=== PATIENT | female | born 1945 | race Caucasian/White ===

== ENCOUNTER 2017-08-24 18:09 | Inpatient (IN) | payer MEDICARE, OTHER ==
[~2017-08-24] VITALS: Ht 165.1 cm; Wt 102.8 kg
[2017-08-24] MEDS ORDERED: ASPIRIN 81 MG TAB PO ONE (18:30)
[2017-08-24] MEDS ORDERED: FUROSEMIDE 40 MG INJ IV ONE (18:30)
[2017-08-24] MEDS ORDERED: NITROGLYCERIN (SL) 0.4 MG TAB SL ONE (18:30)
--- NOTE | 2017-08-24 18:38 | RADRPT ---
PROCEDURE: XR, Chest. CLINICAL INDICATION: Cough/abdomen pain. TECHNIQUE: AP chest COMPARISON: None available. FINDINGS: The heart is somewhat enlarged. There is no acute infiltrate in the lungs. No pleural effusion. IMPRESSION: 1. Borderline cardiomegaly. RPTAT: GG .Raul Sheffield MD, Date Time Electronically viewed and signed by .Raul Sheffield MD, on 08/24/2017 18:38 .Y/
[2017-08-24 18:39] LABS: BASOPHILS % 0.2 % (0.0-2.0); EOSINOPHILS # 0.2 10^3/ul (0.0-0.5); EOSINOPHILS % 1.5 % (0.0-7.0); HEMATOCRIT 42.9 % (37.0-47.0); HEMOGLOBIN 14.7 g/dl (12.0-16.0); LYMPHOCYTES % 13.7 % (15.0-51.0); MEAN CORPUSCULAR HEMOGLOBIN 30.4 pg (29.0-33.0); MEAN CORPUSCULAR HGB CONC 34.3 g/dl (32.0-37.0); MEAN CORPUSCULAR VOLUME 88.8 fl (82.0-101.0); MEAN PLATELET VOLUME 10.4 fl (7.4-10.4); MONOCYTE # 0.7 10^3/ul (0.3-0.9); MONOCYTES % 4.7 % (0.0-11.0); NEUTROPHIL # 11.7 10^3/ul (1.6-7.5); NEUTROPHILS % 79.1 % (39.0-77.0); PLATELET COUNT 297 10^3/UL (140-415); RED BLOOD COUNT 4.83 10^6/ul (4.20-5.40); RED CELL DISTRIBUTION WIDTH 13.2 % (11.5-14.5); WHITE BLOOD COUNT 14.8 10^3/ul (4.8-10.8)
[2017-08-24] MEDS ORDERED: ALBUTEROL 0.5% (NEB) 2.5 MG/0.5 ML AMP INH STA (18:56)
[2017-08-24] MEDS ORDERED: METHYLPREDNISOLONE 125 MG INJ IV STA (18:56)
[2017-08-24] MEDS ORDERED: IPRATROPIUM (NEB) 0.5 MG/2.5 ML AMP INH STA (18:56)
[2017-08-24 19:08] LABS: INR 1.02; PROTIME 13.5 Sec (11.9-14.9); PT RATIO 1.1
[2017-08-24 19:09] LABS: ALANINE AMINOTRANSFERASE 42 IU/L (13-69); ALBUMIN 4.5 g/dl (3.3-4.9); ALBUMIN/GLOBULIN RATIO 1.45; ALKALINE PHOSPHATASE 121 IU/L (42-121); ANION GAP 15 (8-16); ASPARTATE AMINO TRANSFERASE 31 IU/L (15-46); BILIRUBIN,INDIRECT 1.1 mg/dl (0-1.1); BILIRUBIN,TOTAL 1.1 mg/dl (0.2-1.3); BLOOD UREA NITROGEN 20 mg/dl (7-20); CALCIUM 9.7 mg/dl (8.4-10.2); CARBON DIOXIDE 30 mmol/L (21-31); CHLORIDE 99 mmol/L (97-110); CREATININE 0.63 mg/dl (0.44-1.00); GLUCOSE 222 mg/dl (70-220); POTASSIUM 4.4 mmol/L (3.5-5.1); SODIUM 140 mmol/L (135-144); TOTAL PROTEIN 7.6 g/dl (6.1-8.1)
[2017-08-24 19:22] LABS: TROPONIN-I < 0.012 ng/ml (0.00-0.12)
--- NOTE | 2017-08-24 19:23 | ERD ---
ER Documentation Chief Complaint Chief Complaint SOB HPI 72-year-old woman brought in by EMS for complaints of shortness of breath and dyspnea on exertion, symptoms began while walking. Patient does not have a history of heart failure or asthma, denies lower extremity swelling, no chest pain, no fevers or chills, no cough, no headache or blurry vision, no dizziness. Patient was transported here by EMS on CPAP because she was initially hypoxic at the scene. ROS All systems reviewed and are negative except as per history of present illness. Allergies Allergies: Coded Allergies: levofloxacin (Unverified Allergy, Severe, TONGUE SWELLING, 08/24/17) PMhx/Soc Obesity, hypertension, dyslipidemia FmHx Family History: No diabetes Physical Exam Vitals Vital Signs Date Time Temp Pulse Resp B/P Pulse Ox O2 Delivery O2 Flow Rate FiO2 08/24/17 19:30 98.6 83 22 126/81 93 BIPAP 08/24/17 19:05 89 24 93 21 08/24/17 18:51 98.6 83 27 113/74 100 BIPAP 08/24/17 18:29 88 100 100 08/24/17 18:18 98.6 92 27 179/81 100 Physical Exam GENERAL: Well-developed, well-nourished, dyspneic, afebrile HEENT: Moist mucous membranes, pink conjunctiva, no cervical spine tenderness or step-off deformities, no goiter, no jaundice or icterus, extraocular movements intact without pain. No submandibular induration, and no pharyngeal erythema NEURO: Alert and oriented 3, cranial nerves II through XII intact bilaterally, pupils equal round reactive to light, no focal deficits or facial asymmetry, sensation intact distally Strength 5/5 in upper and lower extremities bilaterally CARDIAC: Regular rate and rhythm, no murmurs rubs or gallops LUNGS: Poor breath sounds bilaterally ABDOMEN: Soft nontender, no guarding, no rigidity, no rebound, no psoas sign no obturator sign. Normoactive bowel sounds SKIN: Warm and dry to touch, no abrasions, contusions, or hematomas, no lacerations, no ecchymosis, no target lesions, and without ulcers EXTREMITIES: Stasis dermatitis changes to the lower extremities bilaterally, 1+ pitting edema, calves are bilaterally symmetrical, no Homans sign, no popliteal cord sign. Distal pulses equal and bilateral PSYCH: Normal affect without agitation or irritability Result Diagram: 12/11/17 1831 08/24/17 1831 Results 24 hrs Laboratory Tests Test 08/24/17 18:31 08/24/17 19:38 White Blood Count 14.810^3/ul Red Blood Count 4.8310^6/ul Hemoglobin 14.7g/dl Hematocrit 42.9% Mean Corpuscular Volume 88.8fl Mean Corpuscular Hemoglobin 30.4pg Mean Corpuscular Hemoglobin Concent 34.3g/dl Red Cell Distribution Width 13.2% Platelet Count 86764^3/UL Mean Platelet Volume 10.4fl Neutrophils % 79.1% Lymphocytes % 13.7% Monocytes % 4.7% Eosinophils % 1.5% Basophils % 0.2% Nucleated Red Blood Cells % 0.0/100WBC Neutrophils # 11.710^3/ul Lymphocytes # 2.010^3/ul Monocytes # 0.710^3/ul Eosinophils # 0.210^3/ul Basophils # 0.010^3/ul Nucleated Red Blood Cells # 0.010^3/ul Prothrombin Time 13.5Sec Prothrombin Time Ratio 1.1 INR International Normalized Ratio 1.02 Sodium Level 140mmol/L Potassium Level 4.4mmol/L Chloride Level 99mmol/L Carbon Dioxide Level 30mmol/L Anion Gap 15 Blood Urea Nitrogen 20mg/dl Creatinine 0.63mg/dl Glucose Level 222mg/dl Calcium Level 9.7mg/dl Total Bilirubin 1.1mg/dl Direct Bilirubin 0.00mg/dl Indirect Bilirubin 1.1mg/dl Aspartate Amino Transf (AST/SGOT) 31IU/L Alanine Aminotransferase (ALT/SGPT) 42IU/L Alkaline Phosphatase 121IU/L Troponin I < 0.012ng/ml B-Type Natriuretic Peptide 337PG/ML Total Protein 7.6g/dl Albumin 4.5g/dl Globulin 3.10g/dl Albumin/Globulin Ratio 1.45 Lipase 96U/L Blood Gas Specimen Source Blood arterial Arterial Blood Date Drawn 08/24/2017 7:49:46 PM Arterial Blood pH (Temp corrected) 7.451 Arterial Blood pCO2 (Temp correct) 36.1mmhg Arterial Blood pO2 (Temp corrected) 454.9mmHG Arterial Blood HCO3 24.6mmol/L Arterial Blood Base Excess 1.0mmol/L Arterial Blood Oxygen Saturation 99.7mmHG Maverick Test ACCEPTAB Arterial Blood Gas Puncture Site Right Radial Arterial Blood Carboxyhemoglobin 0.3% Arterial Blood Methemoglobin 0.2% Blood Gas A-a O2 Differential 222.0mmHg Oxyhemoglobin Percent 99.2% Total Hemoglobin 14.9g/dl Blood Gas Temperature 37.0C Blood Gas Respiration Rate 16.0 Blood Gas Actual Respiration Rate 25 Blood Gas Modality BIPAP - S/T FiO2 100.0% Blood Gas Pressure Support 10 Blood Gas IPAP/EPAP Ratio 15/5 Blood Gas Notified Whom MM Blood Gas Notified Time 08/24/2017 7:59:58 PM Current Medications Medications (Trade) Dose Ordered Sig/Hood Route PRN Reason Start Time Stop Time Status Last Admin Dose Admin Aspirin (Aspirin) 324 mg ONCE ONCE PO 08/24/17 18:30 08/24/17 18:34 DC 08/24/17 18:38 Furosemide (Lasix) 60 mg ONCE ONCE IV 08/24/17 18:30 08/24/17 18:34 DC 08/24/17 18:38 Nitroglycerin (Nitroglycerin (Sl Tab) 0.4 Mg) 1 tab ONCE ONCE SL 08/24/17 18:30 08/24/17 18:34 DC 08/24/17 18:38 Albuterol (Proventil 0.5% (Neb)) 10 mg ONCE STAT INH 08/24/17 18:56 08/24/17 18:57 DC 08/24/17 19:05 Ipratropium Glade (Atrovent 0.02% (Neb)) 1 mg ONCE STAT INH 08/24/17 18:56 08/24/17 18:57 DC 08/24/17 19:05 Methylprednisolone Sodium Succinate (Solu-Medrol) 125 mg ONCE STAT IV 08/24/17 18:56 08/24/17 18:57 DC 08/24/17 19:01 Procedures/[facility] IV line was established patient was placed on cardiac cath tech rhythm strip revealed a sinus rhythm at about 80 bpm with upright P and T waves. Patient was afebrile Patient was initially hypertensive and dyspneic, I suspected decompensated heart failure and treated her with enalapril 1.25 mg IV, furosemide 60 mg IV 1 , nitroglycerin 0.4 mg sublingual, and aspirin 324 mg p.o. for cardioprotective measures. Patient was placed on BiPAP therapy with some improvement in symptoms. One AP view of the chest performed, read by me reveals no acute infiltrates, normal mediastinum, sharp costophrenic and cardiac borders, no air under the diaphragm. Otherwise unremarkable chest x-ray. EKG performed, read by me: 81 bpm, normal sinus rhythm, normal axis, no acute ST segment changes, narrow QRS complex, with good R-wave progression in precordial leads. I discontinued BiPAP therapy and saturation remained at about 95%, patient was actively wheezing and dyspneic and I treated her here with albuterol 10 mg via nebulizer, ipratropium 1 mg via nebulizer, and methylprednisolone 125 mg IV 1. CBC revealed a leukocytosis of 15, and electrolytes were normal, liver function tests were normal, troponin was negative, BNP was low. Influenza AB swabs are pending I will follow-up. ABG was normal. Critical Care: Time: 48 minutes, this was time separate from other billable procedures. Treatments/Evaluations: Close monitoring and treatment of unstable vital signs, cardiorespiratory, and neurologic status, while maintaining tight balance of fluid, respiratory, and cardiac interventions. Patient ultimately placed back on BiPAP therapy and it seems that nebulized albuterol is helping her. Influenza AB swabs were negative. Patient's pulmonary symptoms have not stabilized while in the department despite improvement. Patient remains dyspneic and was found to have wheezing while in the emergency department, although initial impression was that of decompensated heart failure. Patient will be admitted to telemetry setting for continued medical management and for possible further imaging, if indicated. I do not suspect pulmonary embolism, cardiac ischemia, or aortic dissection at this time although these are all differentials which may require further investigation/imaging as her symptoms evolve. Departure Diagnosis: Primary Impression: Acute respiratory failure Respiratory failure complication: hypoxia and hypercapnia Qualified Code: J96.01 - Acute respiratory failure with hypoxia and hypercapnia Additional Impressions: Hypertensive emergency Reactive airway disease with acute exacerbation Asthma severity: moderate Asthma persistence: persistent Qualified Code: J45.41 - Moderate persistent reactive airway disease with acute exacerbation Condition: Serious JOAQUINA FRY MD Aug 24, 2017 19:23
[2017-08-24 20:00] LABS: Allen Test ACCEPTAB; Arterial COHb 0.3 % (0.0-3.0); Arterial Fraction of Oxyhgb 99.2 % (93.0-99.0); Arterial HCO3 24.6 mmol/L (22.0-26.0); Arterial MetHb 0.2 % (0.0-1.5); Arterial Total Hemglobin 14.9 g/dl (12.0-18.0); Blood Gas IEPAP 15/5; Blood Gas PS 10; MODE BIPAP - S/T
[2017-08-24] MEDS ORDERED: BISACODYL (EC) 5 MG TAB PO PRN (20:30)
[2017-08-24] MEDS ORDERED: DOCUSATE SODIUM 100 MG CAP PO PRN (20:30)
[2017-08-24] MEDS ORDERED: ACETAMINOPHEN 325 MG TAB PO PRN (20:30)
[2017-08-24] MEDS ORDERED: NACL 0.9% 3 ML SYG IV SCH (20:30)
[2017-08-24] MEDS ORDERED: ONDANSETRON 4 MG TAB PO PRN (20:30)
[2017-08-24] MEDS ORDERED: hydrALAzine 20 MG INJ IV PRN (20:30)
[2017-08-24] MEDS ORDERED: CRES10 PO (20:32)
[2017-08-24] MEDS ORDERED: ATEN-51 PO (20:32)
[2017-08-24] MEDS ORDERED: REPA2TAB8 PO (20:32)
[2017-08-24] MEDS ORDERED: SITA100T8 PO (20:33)
[2017-08-24] MEDS ORDERED: TRIA1CAP PO (20:34)
[2017-08-24 20:35] LABS: ADD UMIC YES; UR ASCORBIC ACID NEGATIVE (NEGATIVE); UR BACTERIA MANY /HPF (NONE SEEN); UR BILIRUBIN (Dip) NEGATIVE (NEGATIVE); UR BLOOD (Dip) 1+ mg/dL (NEGATIVE); UR CLARITY CLEAR (CLEAR); UR COLOR STRAW (YELLOW); UR GLUCOSE (Dip) NEGATIVE (NEGATIVE); UR KETONES (Dip) NEGATIVE (NEGATIVE); UR LEUKOCYTE ESTERASE (Dip) NEGATIVE Leu/ul (NEGATIVE); UR NITRITE (Dip) NEGATIVE (NEGATIVE); UR RBC 1 /HPF (0-5); UR SPECIFIC GRAVITY (Dip) 1.006 (1.003-1.030); UR TOTAL PROTEIN (Dip) NEGATIVE (NEGATIVE); UR UROBILINOGEN (Dip) NEGATIVE (NEGATIVE)
[2017-08-24 20:39] LABS: D-DIMER 2784.84 ng/ml (<460)
[2017-08-24] MEDS ORDERED: ASPI-664 PO (20:51)
[2017-08-24] MEDS ORDERED: CYAN1TAB17 PO (20:51)
[2017-08-24] MEDS ORDERED: ERGO500037 PO (20:52)
[2017-08-24] MEDS ORDERED: OMEP20CA16 PO (20:52)
[2017-08-24] MEDS ORDERED: MELO-210 PO (20:53)
[2017-08-24] MEDS ORDERED: TRAM-40 PO (20:53)
[2017-08-24] MEDS ORDERED: SENN-99 PO (20:55)
[2017-08-24] MEDS: ALBUTEROL/IPRATROPIUM (NEB) 3 ML AMP HHN SCH (21:00)
[2017-08-24] MEDS: ENOXAPARIN 40 MG/0.4 ML SYG SC SCH (21:22)
[2017-08-24] MEDS: METHYLPREDNISOLONE 40 MG INJ IV SCH (21:23)
[2017-08-24] MEDS ORDERED: morphine 4 MG/ML VIAL IV STA (21:34)
[2017-08-24] MEDS ORDERED: IOHEXOL 100 ML ONE (22:20)
[2017-08-24] MEDS ORDERED: SOD CHLORIDE 0.9% 100 ML ONE (22:20)
--- NOTE | 2017-08-24 22:54 | RADRPT ---
PROCEDURE: US Lower extremity Venous. CLINICAL INDICATION: Elevated D-dimer TECHNIQUE: Multiple sonographic images of the bilateral lower extremity deep venous system was obt ained utilizing grayscale, color-flow, compressive sonography and doppler imaging with augmentation. The images were reviewed on a PACS workstation. COMPARISON: None. FINDINGS: There is normal compressibility and flow within the bilateral common femoral, superficial femoral , posterior tibial, peroneal and popliteal veins. IMPRESSION: No sonographic evidence for deep venous thrombosis. RPTAT: HJAH .Odalys Muñoz MD, MD Date Time Electronically viewed and signed by .Odalys Muñoz MD, MD on 08/24/2017 22:54 .H/
[2017-08-25] VITALS (14 sets, daily range): BP systolic 117–148; BP diastolic 60–69; PULSE 88–109; RESP 18–22; TEMP 98.1; Ht 165.1 cm; Wt 102.8 kg
--- NOTE | 2017-08-25 01:00 | RADRPT ---
PROCEDURE: CT Chest with IV contrast. CLINICAL INDICATION: Hypoxia. TECHNIQUE: CT scan of the chest was performed on a multidetector scanner. The patient was scanned following the uncomplicated intravenous administration of 100 cc of Isovue 370 contrast. 3D, coron al and sagittal reformatted images were obtained from the axial source images. Images were reviewed on a high-resolution PACS workstation. The total exam CTDlvol = 62 mGy and DLP = 748 mGy-cm. One of the following 3 dose reduction techniques were used: Automated exposure control; adjustment of the m A and/or kV according to patient size; or use of iterative reconstruction technique. DICOM images a re available. COMPARISON: Chest x-ray 08/24/2017 FINDINGS: No filling defects are identified within the pulmonary arteries to suggest pulmonary artery thrombos is. Thoracic aorta is normal caliber without aneurysm or dissection. There is no mediastinal or hi lar lymphadenopathy or mass. Heart is normal size. No pericardial fluid or thickening. There is mild dependent atelectasis. No focal infiltrate. There is no pleural effusion. There is no pneumothorax. There are no fractures. There are degenerative changes of the thoracic spine. Imaging obtained through the upper abdomen demonstrates partially fatty replaced pancreas. Liver i s hypodense/fatty. IMPRESSION: 1. No evidence for pulmonary embolus. 2. No aortic aneurysm or dissection. 3. No evidence for CHF or infiltrate. 4. Minimal bibasilar atelectasis. 5. Fatty liver and pancreas. RPTAT: HMVK .Sreedhar Asencio MD, MD Date Time Electronically viewed and signed by .Sreedhar Asencio MD, MD on 08/25/2017 00:59 .K/
[2017-08-25] MEDS: ALBUTEROL/IPRATROPIUM (NEB) 3 ML AMP HHN SCH ×6 (01:04→20:42)
[2017-08-25] MEDS: METHYLPREDNISOLONE 40 MG INJ IV SCH (05:31)
--- NOTE | 2017-08-25 06:22 | HP ---
Date/Time of Note Date/Time of Note DATE: 08/25/17 TIME: 06:21 Assessment/Plan VTE Prophylaxis VTE Prophylaxis Intervention: LMWH Lines/Catheters IV [facility] Saline [facility] Urinary Cath still in place: No Assessment/Plan Chief Complaint/Hosp Course This is a 72 year female being admitted to the telemetry floor for: #1 dyspnea: PE versus reactive airway disease versus respiratory infection versus cardiac: D-dimer was elevated at approximately 2800 however CTA of the chest was negative for PE and no signs of CHF or infiltrates. Patient does have an elevated white blood cell count of 14, the patient is afebrile. This possibly could be a viral infection especially in the setting of patient's postnasal drip and suspected mucus that has been difficult to clear. At the current time I will start the patient on Flonase as well as Mucinex. Will monitor for any development of any fevers. Chest x-ray and CT scan do not show any signs of any infiltrates I will hold off on any antibiotics at this time. Will order an echocardiogram to assess her heart especially with a slightly elevated BNP. Consider pulmonary/cardiology consultation if indicated, trend cardiac enzymes. Will also provide her as needed DuoNeb's. She is currently off of BiPAP and will continue to monitor for any signs of worsening respiratory function. #2 elevated d-dimer: D-dimer was approximately 2800. CTA of the chest was negative for PE. Lower extremity Dopplers were negative for DVTs. Hemoglobin and platelet count within normal values. There are no signs of any bleeding. This could be elevated secondary to possible underlying viral illness as per # 1. Will continue to monitor this. Patient may benefit from a hematology consultation as well. I will order repeat d-dimer. #3 diabetes: We will check hemoglobin A1c, will hold patient's home medications , insulin sliding scale #4 hypertension: We will continue patient's home medications #5 hyperlipidemia: We will continue patient's medications #6 acid reflux: We will continue patient on ppi #7 DVT and GI prolapses:, Lovenox, home ppi Further treatment strategy will be implemented as per the clinical course Problems: HPI/ROS Admit Date/Time Admit Date/Time Aug 24, 2017 at 20:15 Hx of Present Illness Chief complaint: Shortness of breath This is a 72-year-old woman brought in by EMS for complaints of shortness of breath and dyspnea on exertion, symptoms began while walking. Patient does not have a history of heart failure or asthma, denies lower extremity swelling, no chest pain, no fevers, no headache or blurry vision, no dizziness. Does report that when she was taking a shower the other day she felt the chills and she also has felt that there is some mucus that is stuck in her chest. She does report that her grandson is sick at home. Denies any pleuritic pain. She does report she feels some nasal discharge going down the back of her throat. Patient was transported here by EMS on CPAP because she was initially hypoxic at the scene. In the ER patient was put on BiPAP which resulted in good response. It was removed however patient still short of breath and sure she was put back on it. She also reports that her primary care doctor sent her to have imaging study of her lower back she was having some low back pain and she has sciatica down her left leg. She does not recall the exact results. Allergies: Levaquin Medications: See ABRAM BOUCHER Const: As per HPI Eyes : No pain discharge or redness or change in visual acuity ENT: No pain, sore throat, congestion, congestion, dysphagia or discharge Respiratory: As per HPI Cardiovascular: No chest pain, palpitation, PND, or edema GI : no change in appetite, abdominal pain, nausea, vomiting, diarrhea, constipation, or change in the color his stool Genitourinary: No dysuria, hematuria, flank pain , discharge or CVA tenderness Musculoskeletal: Low back pain at the L4 area that is being followed as an outpatient Skin: No rash, bruising or hives Neuro: No headache, dizziness, syncope, seizure, focal weakness Endocrine: No polyuria, polydipsia, temperature intolerance Psych: No hallucination, depression, anxiety or suicidal ideation PMH/Family/Social Past Medical History Diabetes mellitus, hypertension, hyperlipidemia, reflux, 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 The pupils are equal, round and reactive. Extraocular motor are intact, postnasal drip Neck: Supple with full range of motion. No rigidity or meningismus Chest: Nontender Lungs: Clear to auscultation bilaterally no crackles rales or wheezing, no acute respiratory distress Heart: Normal S1-S2, Regular rhythm and rate. No overt murmurs appreciated Abdomen: Soft , nontender, nondistended , bowel sounds are present. No guarding no rebound tenderness , No masses or organomegaly. No costovertebral temporal angle mass Extremities: Trace edema bilaterally at the level of the feet Neurologic: Normal mental status, speech normal, cranial nerves II through XII are intact, motor and sensory are intact, no focal weakness Additional Comments PROCEDURE: US Lower extremity Venous. CLINICAL INDICATION: Elevated D-dimer TECHNIQUE: Multiple sonographic images of the bilateral lower extremity deep venous system was obtained utilizing grayscale, color-flow, compressive sonography and doppler imaging with augmentation. The images were reviewed on a PACS workstation. COMPARISON: None. FINDINGS: There is normal compressibility and flow within the bilateral common femoral, superficial femoral , posterior tibial, peroneal and popliteal veins. IMPRESSION: No sonographic evidence for deep venous thrombosis. RPTAT: HJAH .Odalys Muñoz MD, Date Time Electronically viewed and signed by .Odalys Muñoz MD, on 08/24/2017 22:54 .H/ CC: CAITLIN THURMAN PROCEDURE: XR, Chest. CLINICAL INDICATION: Cough/abdomen pain. TECHNIQUE: AP chest COMPARISON: None available. FINDINGS: The heart is somewhat enlarged. There is no acute infiltrate in the lungs. No pleural effusion. IMPRESSION: 1. Borderline cardiomegaly. RPTAT: GG .Raul Sheffield MD, MD Date Time Electronically viewed and signed by .Raul Sheffield MD, MD on 08/24/2017 18:38 .Y/ CC: JOAQUINA FRY MD PROCEDURE: CT Chest with IV contrast. CLINICAL INDICATION: Hypoxia. TECHNIQUE: CT scan of the chest was performed on a multidetector scanner. The patient was scanned following the uncomplicated intravenous administration of 100 cc of Isovue 370 contrast. 3D, coronal and sagittal reformatted images were obtained from the axial source images. Images were reviewed on a high- resolution PACS workstation. The total exam CTDlvol = 62 mGy and DLP = 748 mGy- cm. One of the following 3 dose reduction techniques were used: Automated exposure control; adjustment of the mA and/or kV according to patient size; or use of iterative reconstruction technique. DICOM images are available. COMPARISON: Chest x-ray 08/24/2017 FINDINGS: No filling defects are identified within the pulmonary arteries to suggest pulmonary artery thrombosis. Thoracic aorta is normal caliber without aneurysm or dissection. There is no mediastinal or hilar lymphadenopathy or mass. Heart is normal size. No pericardial fluid or thickening. There is mild dependent atelectasis. No focal infiltrate. There is no pleural effusion. There is no pneumothorax. There are no fractures. There are degenerative changes of the thoracic spine. Imaging obtained through the upper abdomen demonstrates partially fatty replaced pancreas. Liver is hypodense/fatty. IMPRESSION: 1. No evidence for pulmonary embolus. 2. No aortic aneurysm or dissection. 3. No evidence for CHF or infiltrate. 4. Minimal bibasilar atelectasis. 5. Fatty liver and pancreas. RPTAT: HMVK .Sreedhar Asencio MD, MD Date Time Electronically viewed and signed by .Sreedhar Asencio MD, on 08/25/2017 00:59 .K/ CC: CAITLIN THURMAN EKG : 81 bpm, normal sinus rhythm, normal axis, no acute ST segment changes, narrow QRS complex, with good R-wave progression in precordial leads. Above as per ED physician documentation Labs Result Diagram: 08/24/17 18308/24/17 183 Medications Medications Current Medications Hydralazine HCl (Apresoline) 10 mg Q4H PRN IV ELEVATED BLOOD PRESSURE; Start 08/24/17 at 20:30 Ondansetron HCl (Zofran Tab) 4 mg Q6H PRN PO NAUSEA AND/OR VOMITING; Start 07/31 at 20:30 Methylprednisolone Sodium Succinate (Solu-Medrol) 30 mg Q8 IV Last administered on 08/25/17 05:31; Admin Dose 30 MG; Start 08/24/17 at 22:00 Acetaminophen (Tylenol Tab) 650 mg Q6H PRN PO PAIN LEVEL 1-3 OR FEVER; Start 08/24/17 at 20:30 Docusate Sodium (Colace) 100 mg Q12H PRN PO CONSTIPATION; Start 08/24/17 at 20 :30 Bisacodyl (Dulcolax) 5 mg DAILY PRN PO CONSTIPATION; Start 08/24/17 at 20:30 Enoxaparin Sodium (Lovenox) 40 mg DAILY SC Last administered on 08/24/17 21: 22; Admin Dose 40 MG; Start 08/24/17 at 20:30 Fluticasone Propionate (Flonase 0.05% Nasal) 1 spray DAILY NASAL ; Start at 09:00 CAITLIN THURMAN Aug 25, 2017 06:22
[2017-08-25] MEDS ORDERED: traMADol 50 MG TAB PO PRN (07:00)
[2017-08-25 09:10] LABS: BASOPHIL # 0.1 10^3/ul (0.0-0.1); BASOPHILS % 0.3 % (0.0-2.0); EOSINOPHILS # 0.1 10^3/ul (0.0-0.5); EOSINOPHILS % 0.3 % (0.0-7.0); HEMATOCRIT 39.8 % (37.0-47.0); HEMOGLOBIN 13.6 g/dl (12.0-16.0); LYMPHOCYTES # 0.7 10^3/ul (0.8-2.9); LYMPHOCYTES % 4.2 % (15.0-51.0); MEAN CORPUSCULAR HEMOGLOBIN 30.4 pg (29.0-33.0); MEAN CORPUSCULAR HGB CONC 34.2 g/dl (32.0-37.0); MEAN PLATELET VOLUME 10.4 fl (7.4-10.4); MONOCYTE # 0.1 10^3/ul (0.3-0.9); MONOCYTES % 0.7 % (0.0-11.0); NEUTROPHIL # 15.1 10^3/ul (1.6-7.5); NEUTROPHILS % 93.3 % (39.0-77.0); PLATELET COUNT 278 10^3/UL (140-415); RED BLOOD COUNT 4.47 10^6/ul (4.20-5.40); RED CELL DISTRIBUTION WIDTH 12.9 % (11.5-14.5); WHITE BLOOD COUNT 16.1 10^3/ul (4.8-10.8)
[2017-08-25] MEDS: ASPIRIN (EC) 81 MG TAB PO SCH (09:25)
[2017-08-25] MEDS: predniSONE 20 MG TAB PO SCH (09:25)
[2017-08-25] MEDS: FLUTICASONE 0.05% 16 GM NAS SPRAY NASAL SCH (09:25)
[2017-08-25] MEDS: ENOXAPARIN 40 MG/0.4 ML SYG SC SCH (09:29)
[2017-08-25 09:31] LABS: ALBUMIN 4.3 g/dl (3.3-4.9); ALBUMIN/GLOBULIN RATIO 1.34; BILIRUBIN,INDIRECT 1.1 mg/dl (0-1.1); BILIRUBIN,TOTAL 1.1 mg/dl (0.2-1.3); CALCIUM 10.2 mg/dl (8.4-10.2); CHOL/HDL RATIO 2.9 RATIO; CREATININE 0.77 mg/dl (0.44-1.00); TOTAL PROTEIN 7.5 g/dl (6.1-8.1)
[2017-08-25 09:44] LABS: D-DIMER 2387.01 ng/ml (<460)
[2017-08-25 09:57] LABS: THYROID STIMULATING HORMONE 1.25 MIU/L (0.465-4.680)
[2017-08-25] MEDS ORDERED: GLUCAGON 1 MG INJ IM PRN (10:00)
[2017-08-25] MEDS ORDERED: DEXTROSE 50% 50 ML SYRINGE IV PRN ×2 (10:00)
[2017-08-25] MEDS ORDERED: GLUCOSE GEL 15 GRAM TUBE BUCCAL PRN (10:00)
[2017-08-25] MEDS ORDERED: GLUCOSE GEL 15 GRAM TUBE PO PRN ×2 (10:00)
[2017-08-25] MEDS: TRIAMTERENE/HCTZ (37.5-25) CAP PO SCH (10:13)
[2017-08-25] MEDS: MELOXICAM 15 MG TAB PO SCH (10:13)
[2017-08-25] MEDS: GUAIFENESIN LA 600 MG TABSR PO SCH ×2 (10:13→20:31)
[2017-08-25] MEDS ORDERED: NYSTATIN 30 GM POWDER BTL TOP ONE (12:00)
[2017-08-25] MEDS: INSULIN ASPART [NOVOLOG] 3 ML PEN SC SCH ×4 (13:28→20:34)
--- NOTE | 2017-08-25 13:38 | PN ---
Date/Time of Note Date/Time of Note DATE: 08/25/17 TIME: 13:26 Assessment/Plan VTE Prophylaxis VTE Prophylaxis Intervention: SCD's Lines/Catheters IV Catheter Type (from Nrs): Saline Lock Urinary Cath still in place: No Assessment/Plan Assessment/Plan 72 yo F with no known chronic medical conditions here with 4 days of chest congestion, chills, shortness of breath. Suspect viral process. CT chest without PE or infiltrate. BNP not markedly elevated, though will check TTE to eval for DD PLAN TTE, lasix pending TTE result empiric steroid burst full RVP hyperglycemia from steroids-->SSI. a1c 7.6. consider metformin at discharge DVT prophx wean O2 downgrade to medsurg Subjective 24 Hr Interval Summary Free Text/Dictation Pt denies any tob hx, any hx of asthma. Per discussion with patient and son, pt had been experiencing chest congestion for the past 4 days. No fevers, +chills. also with PND Tele with just SR Exam/Review of Systems Vital Signs Vitals Vital Signs Date Time Temp Pulse Resp B/P Pulse Ox O2 Delivery O2 Flow Rate FiO2 08/25/17 12:15 102 08/25/17 12:07 97.6 20 131/60 92 08/25/17 09:47 3.0 08/25/17 09:47 Nasal Cannula 08/24/17 21:20 50 Exam nad minimal OP erythema no mrg no crackles or wheezing no edema no rashes CT chest results noted, BNP noted, flu swab noted Results Result Diagram: 08/25/17 0740 08/25/17 0740 Results 24 hrs Laboratory Tests Test 08/24/17 18:31 08/24/17 19:38 08/24/17 20:00 08/24/17 20:14 White Blood Count 14.8 H Red Blood Count 4.83 Hemoglobin 14.7 Hematocrit 42.9 Mean Corpuscular Volume 88.8 Mean Corpuscular Hemoglobin 30.4 Mean Corpuscular Hemoglobin Concent 34.3 Red Cell Distribution Width 13.2 Platelet Count 297 Mean Platelet Volume 10.4 Neutrophils % 79.1 H Lymphocytes % 13.7 L Monocytes % 4.7 Eosinophils % 1.5 Basophils % 0.2 Nucleated Red Blood Cells % 0.0 Neutrophils # 11.7 H Lymphocytes # 2.0 Monocytes # 0.7 Eosinophils # 0.2 Basophils # 0.0 Nucleated Red Blood Cells # 0.0 Prothrombin Time 13.5 Prothrombin Time Ratio 1.1 INR International Normalized Ratio 1.02 Sodium Level 140 Potassium Level 4.4 Chloride Level 99 Carbon Dioxide Level 30 Anion Gap 15 Blood Urea Nitrogen 20 Creatinine 0.63 Glucose Level 222 H Calcium Level 9.7 Total Bilirubin 1.1 Direct Bilirubin 0.00 Indirect Bilirubin 1.1 Aspartate Amino Transf (AST/SGOT) 31 Alanine Aminotransferase (ALT/SGPT) 42 Alkaline Phosphatase 121 Troponin I < 0.012 B-Type Natriuretic Peptide 337 H Total Protein 7.6 Albumin 4.5 Globulin 3.10 Albumin/Globulin Ratio 1.45 Lipase 96 Blood Gas Specimen Source Blood arterial Arterial Blood Date Drawn 08/24/2017 7:49:46 PM Arterial Blood pH (Temp corrected) 7.451 H Arterial Blood pCO2 (Temp correct) 36.1 Arterial Blood pO2 (Temp corrected) 454.9 H Arterial Blood HCO3 24.6 Arterial Blood Base Excess 1.0 Arterial Blood Oxygen Saturation 99.7 Maverick Test ACCEPTAB Arterial Blood Gas Puncture Site Right Radial Arterial Blood Carboxyhemoglobin 0.3 Arterial Blood Methemoglobin 0.2 Blood Gas A-a O2 Differential 222.0 H Oxyhemoglobin Percent 99.2 H Total Hemoglobin 14.9 Blood Gas Temperature 37.0 Blood Gas Respiration Rate 16.0 Blood Gas Actual Respiration Rate 25 Blood Gas Modality BIPAP - S/T FiO2 100.0 Blood Gas Pressure Support 10 Blood Gas IPAP/EPAP Ratio 15/5 Blood Gas Notified Whom MM Blood Gas Notified Time 08/24/2017 7:59:58 PM Urine Color STRAW Urine Clarity CLEAR Urine pH 5.0 Urine Specific [place] 1.006 Urine Ketones NEGATIVE Urine Nitrite NEGATIVE Urine Bilirubin NEGATIVE Urine Urobilinogen NEGATIVE Urine Leukocyte Esterase NEGATIVE Urine Microscopic RBC 1 Urine Microscopic WBC 4 Urine Bacteria MANY A Urine Hemoglobin 1+ H Urine Glucose NEGATIVE Urine Total Protein NEGATIVE D-Dimer 2784.84 H D-Dimer Comment Test 08/25/17 07:40 White Blood Count 16.1 H Red Blood Count 4.47 Hemoglobin 13.6 Hematocrit 39.8 Mean Corpuscular Volume 89.0 Mean Corpuscular Hemoglobin 30.4 Mean Corpuscular Hemoglobin Concent 34.2 Red Cell Distribution Width 12.9 Platelet Count 278 Mean Platelet Volume 10.4 Neutrophils % 93.3 H Lymphocytes % 4.2 L Monocytes % 0.7 Eosinophils % 0.3 Basophils % 0.3 Nucleated Red Blood Cells % 0.0 Neutrophils # 15.1 H Lymphocytes # 0.7 L Monocytes # 0.1 L Eosinophils # 0.1 Basophils # 0.1 Nucleated Red Blood Cells # 0.0 D-Dimer 2387.01 H D-Dimer Comment Sodium Level 140 Potassium Level 4.0 Chloride Level 95 L Carbon Dioxide Level 28 Anion Gap 21 H Blood Urea Nitrogen 21 H Creatinine 0.77 Glucose Level 448 #*H Hemoglobin A1c 7.6 H Calcium Level 10.2 Total Bilirubin 1.1 Direct Bilirubin 0.00 Indirect Bilirubin 1.1 Aspartate Amino Transf (AST/SGOT) 28 Alanine Aminotransferase (ALT/SGPT) 33 Alkaline Phosphatase 115 Total Protein 7.5 Albumin 4.3 Globulin 3.20 Albumin/Globulin Ratio 1.34 Triglycerides Level 71 Cholesterol Level 159 LDL Cholesterol, Calculated 91 HDL Cholesterol 54 Cholesterol/HDL Ratio 2.9 Thyroid Stimulating Hormone (TSH) 1.250 Medications Medications Current Medications Hydralazine HCl (Apresoline) 10 mg Q4H PRN IV ELEVATED BLOOD PRESSURE; Start 08/24/17 at 20:30 Ondansetron HCl (Zofran Tab) 4 mg Q6H PRN PO NAUSEA AND/OR VOMITING; Start 07/31 at 20:30 Acetaminophen (Tylenol Tab) 650 mg Q6H PRN PO PAIN LEVEL 1-3 OR FEVER; Start 08/24/17 at 20:30 Docusate Sodium (Colace) 100 mg Q12H PRN PO CONSTIPATION; Start 08/24/17 at 20 :30 Bisacodyl (Dulcolax) 5 mg DAILY PRN PO CONSTIPATION; Start 08/24/17 at 20:30 Enoxaparin Sodium (Lovenox) 40 mg DAILY SC Last administered on 08/25/17 09: 29; Admin Dose 40 MG; Start 08/24/17 at 20:30 Fluticasone Propionate (Flonase 0.05% Nasal) 1 spray DAILY NASAL Last administered on 08/25/17 09:25; Admin Dose 1 SPRAY; Start 08/25/17 at 09:00 Guaifenesin (Mucinex) 600 mg BID PO Last administered on 08/25/17 10:13; Admin Dose 600 MG; Start 08/25/17 at 09:00 Aspirin (Halfprin) 81 mg DAILY PO Last administered on 08/25/17 09:25; Admin Dose 81 MG; Start 08/25/17 at 09:00 Meloxicam (Mobic) 15 mg DAILY PO Last administered on 08/25/17 10:13; Admin Dose 15 MG; Start 08/25/17 at 09:00 Tramadol HCl (Ultram) 50 mg TID PRN PO PAIN; Start 08/25/17 at 07:00 Pantoprazole (Protonix Tab) 40 mg DAILY@06 PO ; Start 08/26/17 at 06:00 Atorvastatin Calcium (Lipitor) 40 mg DAILY@21 PO ; Start 08/25/17 at 21:00 Triamterene/HCTZ (Dyazide) 1 cap DAILY PO Last administered on 08/25/17 10:13 ; Admin Dose 1 CAP; Start 08/25/17 at 09:00 Prednisone (Prednisone) 40 mg DAILY PO Last administered on 08/25/17 09:25; Admin Dose 40 MG; Start 08/25/17 at 09:00 Diagnostic Test (Pha) (Accu-Chek) 1 ea 02 XX ; Start 08/26/17 at 02:00 Miscellaneous Information 1 ea NOTE XX ; Start 08/25/17 at 10:00 Glucose (Glutose) 15 gm Q15M PRN PO DECREASED GLUCOSE; Start 08/25/17 at 10:00 Glucose (Glutose) 22.5 gm Q15M PRN PO DECREASED GLUCOSE; Start 08/25/17 at 10: 00 Dextrose (D50w Syringe) 25 ml Q15M PRN IV DECREASED GLUCOSE; Start 08/25/17 at 10:00 Dextrose (D50w Syringe) 50 ml Q15M PRN IV DECREASED GLUCOSE; Start 08/25/17 at 10:00 Glucagon (Glucagen) 1 mg Q15M PRN IM DECREASED GLUCOSE; Start 08/25/17 at 10: 00 Glucose (Glutose) 15 gm Q15M PRN BUCCAL DECREASED GLUCOSE; Start 08/25/17 at 10:00 SANAM DELAROSA MD Aug 25, 2017 13:37
--- NOTE | 2017-08-25 14:27 | RADRPT ---
Echocardiogram Report Patient Name: KELLY MORAN Gender: Female Date: 1945 Study Date: 25-Aug-2017 Human Resource Assistant: Lisa Montoya [facility] Location: [id number] Ref. Physician: CAITLIN THURMAN Quality: Good Procedures: Transthoracic echocardiogram with complete 2D, M-Mode, and doppler examination. Indications: Acute respiratory failure. 2D/M Mode Doppler Measurement Value Normal Ranges Measurement Value Normal Ranges LVIDd 2D 4.3 3.5 - 5.6 cm AV Peak Abhinav 2.4 m/sec LVIDs 2D 2.5 2.1 - 4.1 cm AV Peak PG 23.5 mmHg LVPWd 2D 1.1 0.6 - 1.1 cm MV E Peak Abhinav 0.6 m/sec IVSd 2D 1.1 0.6 - 1.1 cm MV A Peak Abhinav 1.1 m/sec AoR Diam 2D 2.7 2.0 - 3.7 cm MV E/A 0.6 EDV 2D 85.0 cm3 MV Decel Time 178 msec ESV 2D 15.6 cm3 MV Decel Walsh 3 LA Dimen 2D 3.7 2.3 - 4.0 cm MV E/A 0.6 TR Peak Abhinav 2.9 m/sec TR Peak PG 34.3 mmHg RVSP 44.0 mmHg Findings Left Ventricle: Normal left ventricular systolic function. Normal left ventricular cavity size. Mild concentric left ventricular hypertrophy. Ejection fraction is visually estimated at 65 %. Tissue Doppler/Mitral Doppler indices are consistent with impaired relaxation (Stage I diastolic dysfunction). Right Ventricle: Normal right ventricular size. Normal right ventricular systolic function. Left Atrium: The left atrium is normal in size. Right Atrium: The right atrium is normal in size. Mitral Valve: Normal appearance and function of the mitral valve with trace physiologic regurgitation. Aortic Valve: No significant aortic stenosis or insufficiency. Aortic sclerosis without significant stenosis. Tricuspid Valve: Normal appearance of the tricuspid valve. Estimated peak PA systolic pressure 44 mmHg. There is mild tricuspid regurgitation. Pulmonic Valve: Normal pulmonic valve appearance. Pericardium: Normal pericardium with no significant pericardial effusion. Aorta: Normal aortic root. IVC: Normal size and normal respiratory collapse consistent with normal right atrial pressure. Conclusions 1.Normal left ventricular systolic function. Normal left ventricular cavity size. Mild concentric left ventricular hypertrophy. Ejection fraction is visually estimated at 65 %. Tissue Doppler/Mitral Doppler indices are consistent with impaired relaxation (Stage I diastolic dysfunction). 2.Normal appearance and function of the mitral valve with trace physiologic regurgitation. 3.No significant aortic stenosis or insufficiency. Aortic sclerosis without significant stenosis. 4.Normal appearance of the tricuspid valve. Estimated peak PA systolic pressure 44 mmHg. There is mild tricuspid regurgitation. Electronically Signed By: Fabian Jimenez 25-Aug-2017 14:26:55 -0800 Patient Name: KELLY MORAN Study Date: 25-Aug-[id number]
[2017-08-25] MEDS ORDERED: INSULIN GLARGINE [LANtus] 3 ML PEN SC SCH (20:00)
[2017-08-25] MEDS ORDERED: ATORVASTATIN 40 MG TAB PO SCH (21:00)
[2017-08-26] VITALS (10 sets, daily range): BP systolic 121–128; BP diastolic 56–67; PULSE 94–105; RESP 19–20
[2017-08-26] MEDS: ALBUTEROL/IPRATROPIUM (NEB) 3 ML AMP HHN SCH ×4 (00:29→13:55)
[2017-08-26] MEDS ORDERED: ACCU-CHEK XX SCH ×2 (02:00)
[2017-08-26] MEDS ORDERED: AL HYDROX/MG HYDROX/SIMETH 30 ML CUP PO PRN (04:00)
[2017-08-26] MEDS ORDERED: PANTOPRAZOLE (EC) 40 MG TAB PO SCH (06:00)
[2017-08-26] MEDS: INSULIN ASPART [NOVOLOG] 3 ML PEN SC SCH ×2 (08:34→12:41)
[2017-08-26] MEDS: FLUTICASONE 0.05% 16 GM NAS SPRAY NASAL SCH (09:05)
[2017-08-26] MEDS: TRIAMTERENE/HCTZ (37.5-25) CAP PO SCH (09:06)
[2017-08-26] MEDS: MELOXICAM 15 MG TAB PO SCH (09:06)
[2017-08-26] MEDS: predniSONE 20 MG TAB PO SCH (09:06)
[2017-08-26] MEDS: GUAIFENESIN LA 600 MG TABSR PO SCH (09:06)
[2017-08-26] MEDS: ASPIRIN (EC) 81 MG TAB PO SCH (09:06)
[2017-08-26] MEDS: ENOXAPARIN 40 MG/0.4 ML SYG SC SCH (09:08)
[2017-08-26] MEDS ORDERED: LANT3I SC (13:41)
[2017-08-26] MEDS ORDERED: GUAI600T14 PO (13:41)
[2017-08-26] MEDS ORDERED: PRED20TA PO (13:41)
--- NOTE | 2017-08-26 13:44 | DS ---
Date/Time of Note Date/Time of Note DATE: 08/26/17 TIME: 13:42 Discharge Summary Admission/Discharge Info Admit Date/Time Aug 24, 2017 at 20:15 Discharge Date/Time Discharge Diagnosis shortness of breath 2/2 bronchitis, most likely viral in origin, chronic diastolic HF Patient Condition: Good Procedures 12.12 CTA chest IMPRESSION: 1. No evidence for pulmonary embolus. 2. No aortic aneurysm or dissection. 3. No evidence for CHF or infiltrate. 4. Minimal bibasilar atelectasis. 5. Fatty liver and pancreas. 12. LE venous dopplers: no DVT 12. flu swab negative TTE 08/24 Conclusions 1. Normal left ventricular systolic function. Normal left ventricular cavity size. Mild concentric left ventricular hypertrophy. Ejection fraction is visually estimated at 65 %. Tissue Doppler/Mitral Doppler indices are consistent with impaired relaxation (Stage I diastolic dysfunction). 2. Normal appearance and function of the mitral valve with trace physiologic regurgitation. 3. No significant aortic stenosis or insufficiency. Aortic sclerosis without significant stenosis. 4. Normal appearance of the tricuspid valve. Estimated peak PA systolic pressure 44 mmHg. There is mild tricuspid regurgitation. Hx of Present Illness This is a 72-year-old woman brought in by EMS for complaints of shortness of breath and dyspnea on exertion, symptoms began while walking. Patient does not have a history of heart failure or asthma, denies lower extremity swelling, no chest pain, no fevers, no headache or blurry vision, no dizziness. Does report that when she was taking a shower the other day she felt the chills and she also has felt that there is some mucus that is stuck in her chest. She does report that her grandson is sick at home. Denies any pleuritic pain. She does report she feels some nasal discharge going down the back of her throat. Patient was transported here by EMS on CPAP because she was initially hypoxic at the scene. In the ER patient was put on BiPAP which resulted in good response. It was removed however patient still short of breath and sure she was put back on it. She also reports that her primary care doctor sent her to have imaging study of her lower back she was having some low back pain and she has sciatica down her left leg. She does not recall the exact results. Hospital Course 72 yo F with no known chronic medical conditions presented with 4 days of chest congestion, chills, shortness of breath. Suspect viral process. Steroid burst initiated. DDimer elevated but bl LE dopplers without DVT, CT chest without PE or infiltrate. BNP not markedly elevated, TTE showed just grade 1 DD. Pt had been weaned off supplemental O2 by HD2. Breathing back to baseline at discharge. Of note, pt with hyperglycemia from steroids. A1c only in 7s. Pt advised to take weight based basal inuslin while on steroids only and follow up with PCP within 5 days. DC summary given to patient and faxed to PCP's office. Changes from admit meds steroid burst mucinex for cough/chest congestion basal insulin while on steroids pending tests: respiratory viral swab pending at discharge. flu swab was negative Home Meds Reported Medications Sennosides (Dilma-Noel) 8.6 Mg Tablet, 8.6 MG PO DAILY Y for PRN, TAB 08/24/17 Tramadol Hcl* (Ultram*) 50 Mg Tablet, 50 MG PO TID Y for PAIN, TAB 08/24/17 Meloxicam* (Mobic*) 15 Mg Tablet, 15 MG PO DAILY, #30 TAB 08/24/17 Omeprazole* (Omeprazole*) 20 Mg Capsule.dr, 20 MG PO DAILY, #30 CAP 08/24/17 Ergocalciferol (Vitamin D2) (VITAMIN D2) 50,000 Unit Capsule, 01691 UNIT PO Q7D , CAP 08/24/17 Aspirin* (Aspirin* EC) 81 Mg Tablet.dr, 81 MG PO DAILY, TAB 08/24/17 Cyanocobalamin/FA/Pyridoxine (Folplex 2.2 Tablet) 1 Each Tablet, 1 EACH PO DAILY , TAB 08/24/17 Triamterene/Hydrochlorothiazid (Dyazide 37.5-25 Capsule) 1 Each Capsule, 1 EACH PO DAILY, CAP 08/24/17 Sitagliptin* (Januvia*) 100 Mg Tablet, 100 MG PO QAM, #30 TAB 08/24/17 Rosuvastatin Calcium* (Crestor*) 10 Mg Tablet, 10 MG PO QHS, #30 TAB 08/24/17 Repaglinide* (Repaglinide*) 2 Mg Tablet, 2 MG PO AC MEALS, TAB 08/24/17 Atenolol* (Atenolol*) 25 Mg Tablet, 50 MG PO DAILY, #60 TAB 08/24/17 Follow-up Plan PCP within 7 days Primary Care Provider Savana Sanchez [id number] [id number] p Pending Labs Laboratory Tests Test 08/25/17 14:23 08/25/17 15:07 08/25/17 16:11 08/25/17 17:17 Bedside Glucose 431mg/dL (70-220) 438mg/dL (70-220) 405mg/dL (70-220) 437mg/dL (70-220) Test 08/25/17 20:18 08/26/17 01:43 08/26/17 08:31 08/26/17 12:38 Bedside Glucose 325mg/dL (70-220) 260mg/dL (70-220) 246mg/dL (70-220) 212mg/dL (70-220) SANAM DELAROSA MD Aug 26, 2017 13:44
== END 2017-08-26 16:40 | disposition home or self-care (01) | DRG 202 ==
LOC: E/R 18:09 → MS4 20:15
PROVIDERS: ADMIT Family Medicine; ATTEND Family Medicine
PROC: 5A09357 Assistance with Respiratory Ventilation, Less than 24 Consecutive Hours, Continuous Positive Airway Pressure (ICD-10-PCS; principal; 2017-08-24)
PROC: 4A033R1 Measurement of Arterial Saturation, Peripheral, Percutaneous Approach (ICD-10-PCS; 2017-08-24)
DX: J20.8 Acute bronchitis due to other specified organisms (principal); I50.32 Chronic diastolic (congestive) heart failure; E11.65 Type 2 diabetes mellitus with hyperglycemia; I11.0 Hypertensive heart disease with heart failure; K21.9 Gastro-esophageal reflux disease without esophagitis; E78.5 Hyperlipidemia, unspecified; R79.1 Abnormal coagulation profile; T38.0X5A Adverse effect of glucocorticoids and synthetic analogues, initial encounter
CPT/HCPCS: 36415; 36600; 71010; 71275; 80053; 80061; 81001; 82803; 82962; 83036; 83690; 83880; 84443; 84484; 85025; 85378; 85610; 87275; 87276; 87279; 87280; 87400; 93005; 93306; 93970; 94640; 94644; 94660; 96372; 96374; 96375; 96376; J1650; J1815; J1940; J2270; J2920; J2930; J7512; Q9967